=== PATIENT | female | born 1995 | race Hispanic/Latino ===

== ENCOUNTER 2020-11-12 12:21 | Observation (INO) | payer MEDICAID ==
[~2020-11-12] VITALS: Ht 162.6 cm; Wt 131.1 kg
[2020-11-12 13:03] LABS: APPEARANCE,URINE CLOUDY (CLEAR); BILIRUBIN,URINE NEGATIVE (NEGATIVE); COLOR,URINE YELLOW (YELLOW); GLUCOSE, URINE (UA) NEGATIVE (NEGATIVE); KETONES,URINE NEGATIVE (NEGATIVE); LEUKOCYTE ESTERASE ,URINE MODERATE (NEGATIVE); NITRATE,URINE NEGATIVE (NEGATIVE); OCCULT BLOOD,URINE NEGATIVE (NEGATIVE); PH,URINE 6.5 (5.0-8.0); PROTEIN,URINE NEGATIVE (NEGATIVE); UROBILINOGEN,URINE 0.2 mg/dL (0.2-1.0)
[2020-11-12 13:15] LABS: BACTERIA,URINE Moderate /HPF (None Seen)
[2020-11-12 13:16] LABS: RBC,URINE 0-1 /HPF (0-1); SQUAMOUS EPITHELIAL CELL,UR 30-50 /HPF (0-2)
[2020-11-12] MEDS: LACTATED RINGERS 1000ML 1,000 ML IV PRN ×2 (13:37→23:15)
[2020-11-12 14:29] VITALS: BP 114/68
[2020-11-12 16:04] LABS: HEMATOCRIT 36.9 % (36-48); MEAN CORPUSCULAR HEMOGLOBIN 30.5 pg (27.0-33.0); MEAN CORPUSCULAR HGB CONC 33.3 g/dL (32.0-36.0); MEAN CORPUSCULAR VOLUME 91.6 fL (79-99); RED BLOOD CELL COUNT(AUTO) 4.03 MIL/uL (4.00-5.50); WHITE BLOOD COUNT (AUTO) 10.3 K/uL (4.8-10.8)
[2020-11-12] MEDS ORDERED: AMPICILLIN 2GM+NS 100ML 100 ML IV SCH (18:00)
[2020-11-12] MEDS ORDERED: EPHEDRINE SULFATE 50 MG/ML AMPULE IVP PRN (19:00)
[2020-11-12] MEDS ORDERED: NALOXONE HCL 0.4 MG/1 ML ML IV PRN (19:00)
[2020-11-12] MEDS ORDERED: LACTATED RINGERS 500 ML 500 ML IV PRN (19:00)
[2020-11-12] MEDS ORDERED: MEPERIDINE-PF 50 MG/ML SYG IVP ONE (19:00)
[2020-11-12 19:54] VITALS: BP 114/68
[2020-11-12] MEDS ORDERED: PROMETHAZINE HCL 25 MG/ML 1ML AMPULE IM ONE (20:00)
[2020-11-12] MEDS ORDERED: PREN-196 PO (20:01)
[2020-11-12] MEDS ORDERED: AMPICILLIN 1GM+NS 50ML 50 ML IV SCH (22:00)
[2020-11-13] MEDS: LACTATED RINGERS 1000ML 1,000 ML IV PRN (04:50)
[2020-11-13 07:55] LABS: RAPID PLASMA REAGIN NONREACTIVE (NONREACTIVE)
[2020-11-13] MEDS ORDERED: CEFTRIAXONE 1G VIAL IVP SCH (10:00)
[2020-11-20 12:10] LABS: HEPATITIS Bs ANTIGEN SCREEN P Negative (Negative)
== END 2020-11-13 11:22 | disposition home or self-care (01) ==
LOC: EDH 12:21 → LDH 12:22
PROVIDERS: ADMIT Obstetrics & Gynecology; ATTEND Obstetrics & Gynecology
DX: O62.9 Abnormality of forces of labor, unspecified (principal); O99.891 Other specified diseases and conditions complicating pregnancy; M54.5 Low back pain; R10.9 Unspecified abdominal pain; Z3A.37 37 weeks gestation of pregnancy; Z79.899 Other long term (current) drug therapy
CPT/HCPCS: 36415; 59025 ×2; 81001; 85027; 86592; 86701; 86850; 86900; 86901; 87088; 87340; 87390; 96361 ×4; 96374; G0378 ×22; J0696; J7120 ×3; 96360